=== PATIENT | male | born 1985 ===

== ENCOUNTER 2018-11-22 11:47 | Emergency (ER) | payer SELFPAY ==
[2018-11-22 11:52] VITALS: BP 200/90
--- NOTE | 2018-11-22 12:08 | UC ---
Cardiac HPI - HPI Summary HPI Summary: this gentleman has a history of hypertension from adolescence. He took blood pressure medication until he got out of college but he stopped taking it because it made him feel fatigued. he will occasional chest pain"angina" that presents as pain in left chest and posterior back. Patient questions if this is angina as he sleep on his left side--Patient this episode had has 5 days of intermittent left anterior chest pain, and shoulder / scapula pain. He has not had shortness of breath, nausea nor has he had diaphoresis. today he became concerned because bp at home was 170/120 - History of Current Complaint Chief Complaint: UCChestPain Stated Complaint: CHEST COMPLAINT Time Seen by Provider: 11/22/18 11:59 Hx Obtained From: Patient Onset/Duration: Sudden Onset, Lasting Days - 5, Still Present Timing: Constant Initial Severity: Mild Current Severity: Mild Pain Intensity: 1 Chest Pain Location: Lower Sternal Character: Fast, Dull/Aching - does have a location on left anterior chest that is tender to touch Aggravating Factor(s): Nothing Alleviating Factor(s): Nothing Associated Signs & Symptoms: Positive: Chest Pain, Dizziness - Allergy/Home Medications Allergies/Adverse Reactions: Allergies Allergy/AdvReac Type Severity Reaction Status Date / Time No Known Allergies Allergy Verified 11/22/18 11:51 Home Medications: Home Medications Aspirin TAB* [Aspirin 325 MG TAB*] 325 mg PO DAILY PRN 11/22/18 [History Confirmed 11/22/18] PMH/Surg Hx/FS Hx/Imm Hx Previously Healthy: No Cardiovascular History: Hypertension - not treated for several years - Surgical History Surgical History: None - Family History Family History: arthritis, grandfather [place] - Social History Occupation: Employed Full-time Lives: With Family Alcohol Use: Daily - 1-2 glasses of wine Substance Use Type: Marijuana Smoking Status (MU): Never Smoked Tobacco Review of Systems All Other Systems Reviewed And Are Negative: Yes Constitutional: Positive: Negative Skin: Positive: Negative Eyes: Positive: Negative ENT: Positive: Negative Respiratory: Positive: Negative Cardiovascular: Positive: Chest Pain Gastrointestinal: Positive: Negative Genitourinary: Positive: Negative Motor: Positive: Negative Neurovascular: Positive: Negative Musculoskeletal: Positive: Negative Neurological: Positive: Other - "dizziness" Psychological: Positive: Negative Is Patient Immunocompromised?: No Physical Exam Triage Information Reviewed: Yes Appearance: Well-Appearing, No Pain Distress, Well-Nourished Vital Signs: Initial Vital Signs Temp 97.8 F 11/22/18 11:49 Pulse 98 11/22/18 11:49 Resp 18 11/22/18 11:49 BP 200/90 11/22/18 11:49 Pulse Ox 100 11/22/18 11:49 Vital Signs Reviewed: Yes Eye Exam: Normal Eyes: Positive: Conjunctiva Clear ENT Exam: Normal ENT: Positive: Normal ENT inspection, Hearing grossly normal. Negative: Nasal congestion, Trismus, Muffled voice, Hoarse voice Dental Exam: Normal Neck exam: Normal Neck: Positive: Supple, Nontender Respiratory Exam: Normal Respiratory: Positive: Lungs clear, Normal breath sounds, No respiratory distress, No accessory muscle use, Other: - area of tenderness left anterior chest wall that partially encompasses the chest pain Cardiovascular Exam: Other Cardiovascular: Positive: No Murmur, Pulses Normal, Brisk Capillary Refill, Tachycardia Musculoskeletal Exam: Normal Musculoskeletal: Positive: Strength Intact, ROM Intact, No Edema Neurological Exam: Normal Neurological: Positive: Alert, Muscle Tone Normal Psychological Exam: Normal Skin Exam: Normal Diagnostics - EKG Cardiac Rate: Tachycardia Cardiac Rhythm: Sinus: Normal Ectopy: None ST Segment: Normal EKG Comparison: Other - none available Summary of EKG Findings: sinus tach - Assessment/Plan Course Of Treatment: has already taken an aspirin today, will go to hospital for further evaluation of hypertension and chest discomfort - Clinical Impression Provider Diagnosis: Hypertension, Chest pain in adult, Tachycardia Discharge - Sign-Out/Discharge Documenting (check all that apply): Patient Departure All imaging exams completed and their final reports reviewed: No Studies - Discharge Plan Condition: Guarded Disposition: HOME-RECOMMEND TO ED Patient Education Materials: Angina (ED), Chest Pain (ED) Referrals: Claudia Reyes MD [Medical Doctor] - As Soon As Possible - Billing Disposition and Condition Condition: GUARDED Disposition: Home-Recommend to ED
== END 2018-11-22 12:18 | disposition home health service (06) ==
LOC: UCEAST 11:47
DX: R07.9 Chest pain, unspecified (principal); R00.0 Tachycardia, unspecified; I10 Essential (primary) hypertension; Z79.82 Long term (current) use of aspirin
CPT/HCPCS: 93005; 99202; G0463

== ENCOUNTER 2018-11-22 12:35 | Emergency (ER) | payer OTHER ==
--- NOTE | 2018-11-22 12:59 | ED ---
HPI Chest Pain - HPI Summary HPI Summary: Pt is a 33 y/o male sent from the who presents to the ED c/o CP. He has had intermittent CP for the past 5 days. Pt notes the pain is relieving by walking, deep breathing, and burping. He states the pain is worst in the morning, and lasts for about 30 seconds at a time. Pt states it feels musculoskeletal. He also c/o discomfort of his left shoulder, and numbness of his left fingers. Pt denies any current CP or discomfort. He has had HTN since high school and took HTN medications throughout college. Pt stopped taking the medication in 2013 because it made him feel bad. 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 Pt went to the today because his girlfriend Dona is concerned. Pt took 325 mg of ASA at 10:45 this morning. Pt has a blood pressure cuff at home, and his BP normally ready around 135/90. Today, his BP was 170/100. BP while in room 214/217. Pt reports that he felt anxious earlier at the , and describes this as chills, diaphoresis, dizziness, N/V, and heavy breathing. He denies any cough, fever, [place] , SOB, or abdominal pain. Pt does not take any medications. He uses MJ daily and has a glass of wine every night. - History of Current Complaint Chief Complaint: EDChestPainROMI Time Seen by Provider: 11/22/18 12:49 Hx Obtained From: Patient Onset/Duration: Started Days Ago - 5, Resolved Timing: Intermittent, Lasting Seconds - 30 Initial Severity: Mild Current Severity: None Pain Intensity: 0 Pain Scale Used: 0-10 Numeric Chest Pain Location: Diffuse Chest Pain Radiates: Yes Chest Pain Radiates To:: Shoulder - left Character: Pressure/Squeezing Aggravating Factor(s): Nothing Alleviating Factor(s): Other: - Burping, walking, deep breathing Associated Signs and Symptoms: Positive: Chest Pain, Anxiety, Numbness, Dizziness, Nausea, Vomiting. Negative: Headaches - Allergy/Home Medications Allergies/Adverse Reactions: Allergies Allergy/AdvReac Type Severity Reaction Status Date / Time No Known Allergies Allergy Verified 11/22/18 12:42 PMH/Surg Hx/FS Hx/Imm Hx Cardiovascular History: Reports: Hx Hypertension Respiratory History: Reports: Hx Asthma Psychiatric History: Reports: Hx Anxiety - Surgical History Surgery Procedure, Year, and Place: None. Infectious Disease History: No Infectious Disease History: Denies: Traveled Outside the [place] in Last 30 Days - Family History Known Family History: Positive: Cardiac Disease - [place], Other - arthritis, thyroid disorder Negative: Hypertension - Social History Alcohol Use: Daily - 1-2 glasses of wine Hx Substance Use: Yes Substance Use Type: Reports: Marijuana Hx Tobacco Use: No Smoking Status (MU): Never Smoked Tobacco Review of Systems Positive: Chills, Skin Diaphoresis. Negative: Fever Positive: Chest Pain Positive: Other - heavy breathing. Negative: Shortness Of Breath, Cough Positive: Vomiting, Nausea. Negative: Abdominal Pain Positive: Arthralgia - left shoulder discomfort Neurological: Other - Dizziness Positive: Numbness - left fingers. Negative: Headache Positive: Anxious All Other Systems Reviewed And Are Negative: Yes Physical Exam - Summary Physical Exam Summary: Appearance: Well-appearing, moderate pain distress, well-nourished Skin: Warm, color reflects adequate perfusion, dry Head: Normal Head/Face inspection, atraumatic Eyes: Conjunctiva clear ENT: Normal inspection Neck: Supple, no nodes, no JVD Respiratory: Lungs clear, normal breath sounds, no respiratory distress Cardio: RRR, No murmur, pulses normal, brisk capillary refill, hypertensive Abdomen: Soft, nontender Bowel sounds: Present Musculoskeletal: Strength Intact/ROM intact, no calf tenderness, no edema. Psychological: Normal Neuro: Alert, muscle tone normal, no focal deficit Triage Information Reviewed: Yes Vital Signs On Initial Exam: Initial Vitals Temp Pulse Resp BP Pulse Ox 98 F 94 14 169/117 99 11/22/18 12:43 11/22/18 12:43 11/22/18 12:43 11/22/18 12:43 11/22/18 12:43 Vital Signs Reviewed: Yes Diagnostics - Vital Signs Vital Signs Temp Pulse Resp BP Pulse Ox 11/22/18 12:43 98 F 94 14 169/117 99 - Laboratory Result Diagrams: 11/22/18 13:10 11/22/18 13:10 Lab Statement: Any lab studies that have been ordered have been reviewed, and results considered in the medical decision making process. - Radiology CXR Radiology Interpretation Completed By: Radiologist Summary of Radiographic Findings: No evidence for acute intrathoracic disease. ED physician reviewed radiology report. - EKG 12:54 Cardiac Rate: NL - 86 bpm EKG Rhythm: Sinus Rhythm EKG Comparison: No Significant Change - No changes as compared to EKG on at 11:51. Summary of EKG Findings: An EKG at 12:54 reveals nml AV/IV CT, nml QTc, and nml axis. Re-Evaluation - Re-Evaluation First Eval Re-Evaluation Time: 14:00 Change: Unchanged Comment: BP 171/118 HR 88. Will give metoprolol 5mg IV. Second Eval Re-Evaluation Time: 14:38 Change: Unchanged Comment: No changes. Third Eval Re-Evaluation Time: 15:39 Change: Unchanged Comment: BP 188/117, HR 79 bpm. Denies any CP. Will give Hydralazine 10 mg. Pt used to take Losartan 100 mg and Amlodipine 10 mg. Fourth Eval Re-Evaluation Time: 17:50 Change: Unchanged Comment: Pt's BP 201/108. He feels better after eating. Will give 0.1 mg Clonidine. Chest Pain Course/Dx - Course Course Of Treatment: Pt is a 33 y/o male sent from the who presents to the ED c/o CP. He has had intermittent CP for the past 5 days. Pt notes the pain is relieving by walking, deep breathing, and burping. He states the pain is worst in the morning, and lasts for about 30 seconds at a time. He also c/o discomfort of his left shoulder, and numbness of his left fingers. Pt denies any current CP or discomfort. Pt stopped taking the medication in 2013 because it made him feel bad. His last HTN workup was in 2011, and everything was normal , except for narrowing of his descending aorta. Pt took 325 mg of ASA at 10:45 this morning. Pt reports that he felt anxious earlier at the , and describes this as chills, diaphoresis, dizziness, N/V, and heavy breathing. He denies any cough, fever, [place], SOB, or abdominal pain. A physical exam revealed hypertensive. A CXR was negative. An EKG was negative. Bloodwork and UA reviewed. Final dx are malignant HTN and CP. Pt is discharged home with instructions to take his BP medications. - Diagnoses Provider Diagnoses: Malignant hypertension, Chest pain Discharge - Sign-Out/Discharge Documenting (check all that apply): Patient Departure - Discharge - Discharge Plan Condition: Stable Disposition: HOME Prescriptions: amLODIPine TAB* [Norvasc 5 mg TAB*] 10 mg PO DAILY #30 tab Losartan Potassium 100 mg PO DAILY #30 tablet Patient Education Materials: Chest Pain (ED), Hypertensive Crisis (ED) Forms: *Work Release Referrals: [facility] [Outside] - 1 Day [facility] [Outside] - As Soon As Possible Additional Instructions: You were given metoprolol 5mg IV, hydralazine 10mg IV and losartan 100mg and amlodipine 10mg (orally), the meds that you used to take for hypertension. You had two troponin levels that were zero while you were in the ER, indicating that the chest pain you felt and the HTN you had did not cause any damage to your heart today. You will need to be seen in the next 1-2 days by our [facility] definitely, and you will need to get established with a primary care provider YURI. You should not work today. Return to the ER if you have new or worsening symptoms. - Attestation Statements Document Initiated by Reedibe: Yes Documenting Scribe: Nery Reyes Provider For Whom Ramona is Documenting (Include Credential): Edna Lucio MD Scribe Attestation: Nery Cedeno, scribed for Edna Lucio MD on 11/22/18 at 1914. Status of Scribe Document: Ready
[2018-11-22 13:24] LABS: ABS Basophils 0.1 10^3/ul (0-0.2); ABS Eosinophils 0.1 10^3/ul (0-0.6); ABS Monocytes 0.5 10^3/ul (0-0.8); ABS Neutrophils 9.8 10^3/ul (1.5-7.7); ABS Nucleated RBC 0 10^3/ul; Eosinophil % 0.6 %; Hematocrit 48 % (42-52); Hemoglobin 16.1 g/dl (14.0-18.0); Lymphocyte % 8.9 %; Mean Corpuscular HGB Conc 34 g/dl (31-36); Mean Corpuscular Hemoglobin 30 pg (27-31); Mean Corpuscular Volume 88 fL (80-94); Mean Platelet Volume 7.6 fL (7.4-10.4); Nucleated Red Blood Cells % 0; Platelet Count 314 10^3/ul (150-450); Red Blood Count 5.42 10^6/ul (4.00-5.40); Red Cell Distribution Width 13 % (10.5-15); White Blood Count 11.4 10^3/ul (3.5-10.8)
[2018-11-22 13:41] LABS: Albumin 4.8 g/dL (3.2-5.2); Albumin/Globulin Ratio 1.8 (1-3); BUN/Creatinine Ratio 10.8 (8-20); Calcium 9.8 mg/dL (8.6-10.3); EGFR Non-African American 94.2 (>60); Globulin 2.6 g/dL (2-4); Potassium 3.9 mmol/L (3.5-5.0); Total Bilirubin 1.1 mg/dL (0.2-1.0); Total Protein 7.4 g/dL (6.4-8.9)
[2018-11-22 13:49] LABS: Activated Partial Thrombo Time 27.5 seconds (26.0-36.3); INR 1.01 (0.77-1.02)
[2018-11-22 14:13] LABS: TSH (Thyroid Stimulating Horm) 0.83 mcIU/mL (0.34-5.60)
[2018-11-22] MEDS ORDERED: Metoprolol Tartrate IV* 1 MG/ML 5 ML VIAL IV ONE (14:22)
[2018-11-22 14:25] LABS: Urine Appearance Clear; Urine Bilirubin Negative (Negative); Urine Blood Negative (Negative); Urine Color Straw; Urine Glucose Negative (Negative); Urine Ketones Trace (Negative); Urine Nitrite Negative (Negative); Urine Protein Negative (Negative); Urine Specific Gravity 1.003 (1.010-1.030); Urine Urobilinogen Negative (Negative)
[2018-11-22] MEDS ORDERED: hydrALAZINE IV* 20 MG/ML VIAL IV SLOW PU ONE (15:53)
[2018-11-22] MEDS ORDERED: Losartan TAB* 25 MG PO ONE (16:34)
[2018-11-22] MEDS ORDERED: amLODIPine TAB* 5 MG PO ONE (16:35)
[2018-11-22 16:36] LABS: Barbiturates Urine Screen None Detected (None Detect); Benzodiazepine Urine Screen None Detected (None Detect); Urine Cannabinoids Screen Presumptive Positive (None Detect)
[2018-11-22 17:13] VITALS: BP 194/117
[2018-11-22] MEDS ORDERED: cloNIDine TAB* 0.1 MG PO ONE (17:59)
== END 2018-11-22 18:45 | disposition home or self-care (01) ==
LOC: ED 12:35
DX: R07.9 Chest pain, unspecified (principal); F41.9 Anxiety disorder, unspecified; R11.2 Nausea with vomiting, unspecified; R42 Dizziness and giddiness; R20.0 Anesthesia of skin; I10 Essential (primary) hypertension
CPT/HCPCS: 36415; 71045; 80053; 80307; 81003; 82550; 82553; 83605; 83735; 83880; 84436; 84443; 84484; 85025; 85379; 85610; 85730; 93005; 96374; 96375; 99283; A9270-GY; J0360; J3490